=== PATIENT | male | born 1955 | race Caucasian/White ===

== ENCOUNTER 2016-08-09 08:15 | Emergency (ER) | payer BC ==
[~2016-08-09] VITALS: Ht 175.3 cm; Wt 96.0 kg
[~2016-08-09 08:15] MED LIST: ATOR10 PO; CLIN1CAP6 PO; OMEP20TA PO
[2016-08-09 08:33] VITALS: BP 138/79; PULSE 97; RESP 18; TEMP 99.2; O2SAT 93
[2016-08-09 08:38] VITALS: BP 138/79; PULSE 94; RESP 18; TEMP 99.2; O2SAT 92
[2016-08-09] MEDS ORDERED: SODIUM CHLORIDE 0.9% FLUSH 10 ML FLUSH IVF PRN (08:45)
--- NOTE | 2016-08-09 08:45 | PD ---
HPI Chief Complaint: Syncope/Near-Syncope Time Seen by Provider: 08:32 Travel History International Travel<30 days: No Contact w/Intl Traveler<30days: No Traveled to known affect area: No History of Present Illness HPI Patient is a 61-year-old male who presents the emergency department after syncopal episode. Patient is last week patient had a radical prostatectomy by urology and [facility]. He has been recovering well from surgery. This morning he got up to take a shower. While in the shower he felt lightheaded, dizzy, nauseous and began to sweat and had a brief syncopal episode, falling and hitting his head. He denies any headache, neck or back pain. Since, patient feels improved. He has been having some postoperative pain in the abdomen in the penis, but this is overall been improving today today. 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 Patient denies any associated chest pain, shortness of breath or palpitations. No history of arrhythmia, syncopal episodes. 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) Cardiovascular Problems: Yes High Cholesterol: Yes Chemotherapy: No Chest Pain: No Congestive Heart Failure: No COPD: No Cerebrovascular Accident: No Diabetes: No Diminished Hearing: No Endocrine: No GERD: Yes Genitourinary: No Hiatal Hernia: No Immune Disorder: No Kidney Stones: No Musculoskeletal: No Neurologic: No Psychiatric: No Reproductive: No Respiratory: No Migraines: No Radiation Therapy: No Renal Failure: No Seizures: No Sickle Cell Disease: No Sleep Apnea: No Thyroid Disease: No Ulcer: No Past Surgical History Abdominal Surgery: No AICD: No Arteriovenous Shunt: No Cardiac Surgery: No Ear Surgery: No Endocrine Surgery: No Eye Surgery: No Genitourinary Surgery: No Gynecologic Surgery: No Insulin Pump: No Joint Replacement: No Oral Surgery: No Pacemaker: No Thoracic Surgery: Yes (TONSILLECTOMY) Tonsillectomy: Yes Other Surgery: Yes (SQUAMOUS CELL REMOVAL) Social History Alcohol Use: Yes (DAILY/ 2 DRINKS) Tobacco Use: No Substance Use: No Allergies-Medications (Allergen,Severity, Reaction): Coded Allergies: No Known Allergies (Unverified , 4/11/17) Reported Meds & Prescriptions Reported Meds & Active Scripts Active Reported Oxycodone-Acetaminophen 5-325 mg Tab 1 Tab PO Q4H PRN Sulfamethoxazole-Trimethoprim 800-160 Mg Tab 1 Tab PO DAILY Atorvastatin (Atorvastatin Calcium) 10 Mg Tab 10 Mg PO HS Tamsulosin (Tamsulosin HCl) 0.4 Mg Cap 0.4 Mg PO BID Famotidine 40 Mg Tab 40 Mg PO HS Review of Systems Except as stated in HPI: all other systems reviewed are Neg Physical Exam Narrative GENERAL: Well-appearing male in no acute distress SKIN: Focused skin assessment warm/dry. HEAD: Normocephalic. EYES: Pupils equal and round. No scleral icterus. No injection or drainage. ENT: No nasal bleeding or discharge. Mucous membranes pink and moist. NECK: Supple CARDIOVASCULAR: Regular rate and rhythm. No murmur appreciated. RESPIRATORY: No accessory muscle use. Clear to auscultation. Breath sounds equal bilaterally. GASTROINTESTINAL: Abdomen soft, non-tender, nondistended. Surgical sites clean dry and intact MUSCULOSKELETAL: No obvious deformities. No edema. NEUROLOGICAL: Awake and alert. Motor grossly within normal limits. Normal speech. PSYCHIATRIC: Appropriate mood and affect; insight and judgment normal. Data Data Last Documented VS Vital Signs Date Time Temp Pulse Resp B/P Pulse Ox O2 Delivery O2 Flow Rate FiO2 08/09/16 11:42 99.4 98 16 126/76 94 Room Air Orders Electrocardiogram (08/09/16 08:32) Basic Metabolic Panel (Bmp) (08/09/16 08:32) Complete Blood Count With Diff (08/09/16 08:32) Magnesium (Mg) (08/09/16 08:32) Act Partial Throm Time (Ptt) (08/09/16 08:32) Prothrombin Time / Inr (Pt) (08/09/16 08:32) Ecg Monitoring (08/09/16 08:32) Iv Access Insert/Monitor (08/09/16 08:32) Oximetry (08/09/16 08:32) Sodium Chloride 0.9% Flush (Ns Flush) (08/09/16 08:45) Ct Pulmonary Angiogram (08/09/16 08:32) Ct Brain W/O Iv Contrast(Rout) (08/09/16 ) Iodixanol 320 Inj (Rad Ct) (Visipaque 32 (08/09/16 11:27) Labs Laboratory Tests Test 08/09/16 08/09/16 08:30 10:00 White Blood Count 12.8 TH/MM3 Red Blood Count 4.34 MIL/MM3 Hemoglobin 13.4 GM/DL Hematocrit 38.9 % Mean Corpuscular Volume 89.4 FL Mean Corpuscular Hemoglobin 30.9 PG Mean Corpuscular Hemoglobin 34.5 % Concent Red Cell Distribution Width 12.6 % Platelet Count 197 TH/MM3 Mean Platelet Volume 8.8 FL Neutrophils (%) (Auto) 77.9 % Lymphocytes (%) (Auto) 10.8 % Monocytes (%) (Auto) 9.7 % Eosinophils (%) (Auto) 0.9 % Basophils (%) (Auto) 0.7 % Neutrophils # (Auto) 10.0 TH/MM3 Lymphocytes # (Auto) 1.4 TH/MM3 Monocytes # (Auto) 1.2 TH/MM3 Eosinophils # (Auto) 0.1 TH/MM3 Basophils # (Auto) 0.1 TH/MM3 CBC Comment AUTO DIFF Differential Comment AUTO DIFF CONFIRMED Platelet Estimate NORMAL Platelet Morphology Comment NORMAL Sodium Level 134 MEQ/L Potassium Level 3.8 MEQ/L Chloride Level 101 MEQ/L Carbon Dioxide Level 24.2 MEQ/L Anion Gap 9 MEQ/L Blood Urea Nitrogen 13 MG/DL Creatinine 1.43 MG/DL Estimat Glomerular Filtration 50 ML/MIN Rate Random Glucose 120 MG/DL Calcium Level 8.8 MG/DL Magnesium Level 2.2 MG/DL Prothrombin Time 11.5 SEC Prothromb Time International 1.0 RATIO Ratio Activated Partial 27.3 SEC Thromboplast Time MDM Medical Decision Making Medical Screen Exam Complete: Yes Emergency Medical Condition: Yes Medical Record Reviewed: Yes Differential Diagnosis 61-year-old male postop from prostatectomy here with brief syncopal episode. Differential includes arrhythmia, electrolyte abnormality, symptomatic anemia, vasovagal, PE. He did hit his head, though denies any headache there is some concern for closed head injury, skull fracture, ICH. Narrative Course Patient placed on monitor, IV established and blood obtained. A twelve-lead EKG shows sinus rhythm without notable ST abnormality, normal intervals. CBC, BMP, magnesium and coags were unremarkable. CT of the brain, pulmonary angiogram showed atelectatic changes but otherwise negative. Patient felt improved was able to ambulate will be discharged home. Diagnosis Primary Impression: Syncope Qualified Code: R55 - Syncope, unspecified syncope type Referrals: Primary Care Physician as needed Urologist 1 week Additional Instructions: Drink plenty of fluids. Follow-up with urologist as scheduled and primary care provider as needed. Return to the ER for the warning signs discussed. Med/Other Pt SpecificInfo: No Change to Meds Disposition: 01 DISCHARGE HOME Condition: Stable Hillary Kwong MD Aug 09, 2016 08:45
[2016-08-09 08:52] VITALS: RESP 18; O2SAT 92
[2016-08-09 09:06] LABS: BASOPHIL # 0.1 TH/MM3 (0-0.2); BASOPHIL % 0.7 % (0.0-2.0); EOSINOPHIL # 0.1 TH/MM3 (0-0.4); EOSINOPHIL % 0.9 % (0.0-4.0); HEMATOCRIT 38.9 % (39.0-51.0); LYMPH % 10.8 % (9.0-44.0); LYMPHOCYTE # 1.4 TH/MM3 (1.0-4.8); MEAN CELL VOLUME 89.4 FL (80.0-100.0); MEAN CORPUSCULAR HEMOGLOBIN 30.9 PG (27.0-34.0); MEAN CORPUSCULAR HGB CONC 34.5 % (32.0-36.0); MONO % 9.7 % (0.0-8.0); NEUT % 77.9 % (16.0-70.0); PLATELET COUNT 197 TH/MM3 (150-450); RED BLOOD COUNT 4.34 MIL/MM3 (4.50-5.90); RED CELL DISTRIBUTION WIDTH 12.6 % (11.6-17.2); WHITE BLOOD COUNT 12.8 TH/MM3 (4.0-11.0)
[2016-08-09 09:07] LABS: HEMO FLAGS AUTO DIFF
[2016-08-09 09:21] LABS: BICARBONATE 24.2 MEQ/L (21.0-32.0); MAGNESIUM 2.2 MG/DL (1.5-2.5); POTASSIUM 3.8 MEQ/L (3.5-5.1)
[2016-08-09] MEDS ORDERED: OXYC-432 PO (09:25)
[2016-08-09] MEDS ORDERED: FAMO40TA PO (09:25)
[2016-08-09] MEDS ORDERED: ATOR10TA15 PO (09:25)
[2016-08-09] MEDS ORDERED: SULF1TAB23 PO (09:25)
[2016-08-09] MEDS ORDERED: TAMS0.4C4 PO (09:25)
[2016-08-09 09:48] LABS: PLATELET ESTIMATE SMEAR NORMAL (NORMAL); PLATELET MORPHOLOGY NORMAL (NORMAL); SCAN/DIFF AUTO DIFF CONFIRMED
[2016-08-09 10:00] VITALS: BP 130/77; PULSE 89; RESP 18; O2SAT 97
[2016-08-09 10:24] LABS: APTT (PATIENT) 27.3 SEC (24.3-30.1); PROTHROMBIN TIME - PATIENT 11.5 SEC (9.8-11.6)
--- NOTE | 2016-08-09 11:26 | RADRPT ---
EXAM DATE/TIME: 08/09/2016 10:56 [facility] COMPARISON: No previous studies available for comparison. INDICATIONS : Syncopal episode this morning. RADIATION DOSE: 56.77 CTDIvol (mGy) MEDICAL HISTORY : Cardiovascular disease. Hypertension. SURGICAL HISTORY : None. ENCOUNTER: Initial ACUITY: 1 day PAIN SCALE: 2/10 LOCATION: cranial TECHNIQUE: Multiple contiguous axial images were obtained of the head. Using automated exposure control and adj ustment of the mA and/or kV according to patient size, radiation dose was kept as low as reasonably a chievable to obtain optimal diagnostic quality images. FINDINGS: CEREBRUM: The ventricles are normal for age. No evidence of midline shift, mass lesion, hemorrhage or acute in farction. No extra-axial fluid collections are seen. POSTERIOR FOSSA: The cerebellum and brainstem are intact. The 4th ventricle is midline. The cerebellopontine angle i s unremarkable. EXTRACRANIAL: The visualized portion of the orbits is intact. SKULL: The calvaria is intact. No evidence of skull fracture. CONCLUSION: No acute disease. Nicholas Dejesus MD on August 09, 2016 at 11:23 Board Certified Radiologist. This report was verified electronically.
[2016-08-09] MEDS ORDERED: IODIXANOL 320 MG/ML 10 ML VIAL (for Rad CT) IV ONE (11:27)
--- NOTE | 2016-08-09 11:37 | RADRPT ---
EXAM DATE/TIME: 08/09/2016 10:55 [facility] COMPARISON: No previous studies available for comparison. INDICATIONS : Syncopal episode this morning. ST abnormality. IV CONTRAST: 50 cc Visipaque (iodixanol) IV RADIATION DOSE: 18.01 CTDIvol (mGy) MEDICAL HISTORY : Cardiovascular disease. Hypertension. SURGICAL HISTORY : None. ENCOUNTER: Initial ACUITY: 1 day PAIN SCALE: 4/10 LOCATION: Bilateral chest TECHNIQUE: Volumetric scanning of the chest was performed using a pulmonary embolism protocol MIP images were re constructed. Using automated exposure control and adjustment of the mA and/or kV according to patien t size, radiation dose was kept as low as reasonably achievable to obtain optimal diagnostic quality images. FINDINGS: PULMONARY ARTERIES: No filling defects are seen in the pulmonary arteries through the segmental level. LUNGS: There is linear atelectasis in the right lower lobe and mild dependent atelectatic changes are noted. PLEURAE: There is no pleural thickening or pleural effusion. MEDIASTINUM: There is good visualization of the great vessels of the middle mediastinum. No evidence of mediastin al or hilar adenopathy/mass. MUSCULOSKELETAL: Within normal limits for patient age. MISCELLANEOUS: The visualized upper abdominal organs demonstrate no acute abnormality. CONCLUSION: 1. Atelectatic changes are noted without evidence for pulmonary embolus. Nicholas Dejesus MD on August 09, 2016 at 11:34 Board Certified Radiologist. This report was verified electronically.
[2016-08-09 11:42] VITALS: BP 126/76; PULSE 98; RESP 16; TEMP 99.4; O2SAT 94
[2016-08-09 11:45] VITALS: BP 126/76; TEMP 99.4
--- NOTE | 2016-08-09 12:26 | EKG ---
Date Performed: 08/09/2016 Time Performed: 08:30:38 PTAGE: 61 years EKG: Sinus rhythm NORMAL ECG NO PREVIOUS TRACING DOCTOR: Judson Francois Interpretating Date/Time 08/09/2016 12:24:34
== END 2016-08-09 13:23 | disposition home or self-care (01) ==
LOC: NEPC 08:15
DX: R55 Syncope and collapse (principal); R10.9 Unspecified abdominal pain; I25.10 Atherosclerotic heart disease of native coronary artery without angina pectoris; I10 Essential (primary) hypertension
CPT/HCPCS: 70450; 71275; 80048; 83735; 85025; 85610; 85730; 93005; 99284; Q9967